=== PATIENT | female | born 1965 | race African-American/Black ===

== ENCOUNTER 2017-02-10 17:20 | Emergency (ER) | payer OTHER ==
[~2017-02-10] VITALS: Ht 162.6 cm; Wt 59.0 kg
[~2017-02-10 17:20] MED LIST: AMLODIPINE BESYL5 MG PO; CORTISPORIN OTI10 M2 OTIC; ESTRACE0.5 MG; FLEXERIL; IBUPROFEN 600600 M1 PO; IBUPROFEN 800800 M1; LISINOPRIL2.5 MG PO; MOBIC7.5 M1 PO; NAPROSYN500 MG PO; NORCO 5-325 TA1 EACH PO; PERCOCET 5-3251 EACH PO; PREDNISONE 20 M20 MG PO; ULTRAM 50MG TAB50 MG PO; VICODIN
[2017-02-10 17:22] VITALS: BP 135/93
== END 2017-02-10 19:05 | disposition home or self-care (01) ==
LOC: ER 17:20
DX: J02.0 Streptococcal pharyngitis (principal); I10 Essential (primary) hypertension; F10.99 Alcohol use, unspecified with unspecified alcohol-induced disorder; Z90.710 Acquired absence of both cervix and uterus; Z90.49 Acquired absence of other specified parts of digestive tract; Z98.890 Other specified postprocedural states

== ENCOUNTER 2017-03-24 22:59 | Emergency (ER) | payer OTHER ==
[~2017-03-24] VITALS: Ht 162.6 cm; Wt 60.8 kg
[2017-03-25 01:07] VITALS: BP 136/70
== END 2017-03-25 01:07 | disposition home or self-care (01) ==
LOC: ER 22:59
DX: J03.90 Acute tonsillitis, unspecified (principal); I10 Essential (primary) hypertension; Z98.890 Other specified postprocedural states; Z90.710 Acquired absence of both cervix and uterus